=== PATIENT | male | born 1995 | race Caucasian/White ===

== ENCOUNTER 2019-01-17 08:12 | Emergency (ER) | payer SELFPAY ==
[~2019-01-17] VITALS: Ht 198.1 cm; Wt 131.5 kg
[2019-01-17 08:18] VITALS: BP 143/64
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
== END 2019-01-17 09:54 | disposition home or self-care (01) ==
LOC: ER 08:12
DX: M25.561 Pain in right knee (principal); G89.11 Acute pain due to trauma; V29.88XA Motorcycle rider (driver) (passenger) injured in other specified transport accidents, initial encounter; Y92.488 Other paved roadways as the place of occurrence of the external cause; Y93.89 Activity, other specified; Y99.8 Other external cause status
CPT/HCPCS: 73562; 99284

== ENCOUNTER 2019-01-26 14:11 | Emergency (ER) | payer SELFPAY ==
[~2019-01-26] VITALS: Ht 195.6 cm; Wt 131.5 kg
[2019-01-26] MEDS ORDERED: NAPROXEN 500 MG TABLET PO STA (14:23)
[2019-01-26 14:45] VITALS: BP 149/76
[2019-01-26] MEDS ORDERED: HYDROcodone/APAP 5/325MG 1 TAB TABLET PO ONE (14:45)
--- NOTE | 2019-01-26 14:45 | RAD ---
SHOULDER 2+V RIGHT History: Fall, right clavicular pain Comparison: None. Findings: 3 views of the right clavicle are submitted. There is displaced overriding fracture of the midshaft of the right clavicle, proximal fragment displaced superiorly by greater than 1 shaft width. Impression: 1. There is overriding, displaced fracture of the midshaft of the right clavicle. Electronically signed by: Jose Chakraborty MD (01/26/2019 2:42 PM) [facility]
[2019-01-26] MEDS ORDERED: ONDANSETRON ODT 4 MG TAB.RAPDIS. PO ONE (15:00)
[2019-01-26] MEDS ORDERED: HYDR-3164 PO (15:42)
[2019-01-26] MEDS ORDERED: ONDA4TAB12 PO (15:42)
--- NOTE | 2019-01-26 15:42 | PHYS DOC ---
Past Medical History Past Medical History: No Pertinent History (AMADO JACOBO APRN) Past Surgical History: No Surgical History (AMADO JACOBO APRN) Alcohol Use: None Drug Use: None (AMADO JACOBO APRN) Adult General Chief Complaint Chief Complaint: SHOULDER INJURY HPI HPI Patient is a 23 year old male witha medical history who presents to the ED today complaining of 9 out of 10 right shoulder pain specifically around the right clavicle that began after falling off a ladder. 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 Patient denies any loss of consciousness. Denies any neck pain. Denies hitting his head on the ground. He describes his pain as sharp and constant worse on touching the clavicle. (AMADO JACOBO APRN) Review of Systems Review of Systems Constitutional: Denies fever or chills [] Eyes: Denies change in visual acuity, redness, or eye pain [] HENT: Denies nasal congestion or sore throat [] Respiratory: Denies cough or shortness of breath [] Cardiovascular: No additional information not addressed in HPI [] GI: Denies abdominal pain, nausea, vomiting, bloody stools or diarrhea [] : Denies dysuria or hematuria [] Musculoskeletal: Reports right shoulder pain/right clavicle pain Integument: Denies rash or skin lesions [] Neurologic: Denies headache, focal weakness or sensory changes [] All other systems were reviewed and found to be within normal limits, except as documented in this note. (AMADO JACOBO APRN) Current Medications Current Medications Current Medications Medications (Trade) Dose Ordered Sig/Souleymane Start Time Stop Time Status Last Admin Dose Admin Acetaminophen/ Hydrocodone Bitart (Lortab 5/325) 2 tab 1X ONCE 01/26/19 14:45 01/26/19 14:46 DC 01/26/19 14:31 2 TAB Naproxen (Naprosyn) 500 mg 1X STAT 01/26/19 14:23 01/26/19 14:26 DC 01/26/19 14:31 500 MG Ondansetron HCl (Zofran Odt) 4 mg 1X ONCE 01/26/19 15:00 01/26/19 15:01 DC 01/26/19 15:00 4 MG (JOHN CALDERA MD) Allergies Allergies Allergies Coded Allergies Type Severity Reaction Last Updated Verified No Known Drug Allergies 01/17/19 No (JOHN CALDERA MD) Physical Exam Physical Exam Constitutional: Well developed, well nourished, no acute distress, non-toxic appearance. [] HENT: Normocephalic, atraumatic, bilateral external ears normal, oropharynx moist, no oral exudates, nose normal. [] Eyes: PERRLA, EOMI, conjunctiva normal, no discharge. [] Neck: Normal range of motion, no tenderness, supple, no stridor. [] Cardiovascular:Heart rate regular rhythm, no murmur [] Lungs & Thorax: Bilateral breath sounds clear to auscultation [] Abdomen: Bowel sounds normal, soft, no tenderness, no masses, no pulsatile masses. [] Skin: Warm, dry, no erythema, no rash. [] Back: No tenderness, no CVA tenderness. [] Extremities: Obvious deformity noted right mid clavicle with tenderness to the region. Slightly Limited range of motion to the right shoulder due to pain on the clavicle. Full range of motion to the right fingers. Adequate radial, medial, ulnar sensation to the right upper extremity. +2 right radial pulse. Cap refill less than 2 seconds the right fingers. Neurologic: Alert and oriented X 3, normal motor function, normal sensory function, no focal deficits noted. [] Psychologic: Affect normal, judgement normal, mood normal. [] (AMADO JACOBO APRN) Current Patient Data Vital Signs Vital Signs Date Time Temp Pulse Resp B/P (MAP) Pulse Ox O2 Delivery O2 Flow Rate FiO2 01/26/19 14:45 76 16 149/76 (100) 97 Room Air 01/26/19 14:25 98.5 98.5 (JOHN CALDERA MD) EKG EKG [] (AMADO JACOBO APRN) Radiology/Procedures Radiology/Procedures []PROCEDURE: SHOULDER 2+V RIGHT SHOULDER 2+V RIGHT History: Fall, right clavicular pain Comparison: None. Findings: 3 views of the right clavicle are submitted. There is displaced overriding fracture of the midshaft of the right clavicle, proximal fragment displaced superiorly by greater than 1 shaft width. Impression: 1. There is overriding, displaced fracture of the midshaft of the right clavicle. Electronically signed by: Aimee Drummond MD (01/26/2019 2:42 PM) [facility] DICTATED and SIGNED BY: AIMEE DRUMMOND MD DATE: 01/26/19 1442 (AMADO JACOBO APRN) Course & Med Decision Making Course & Med Decision Making Pertinent Labs and Imaging studies reviewed. (See chart for details) This is a 23-year-old male patient who presents to the ED today with right shoulder pain specifically around the clavicle that began after he fell off a ladder. Xray of the right shoulder interpreted by radiologist noted for overriding, displaced fracture of the midshaft of the right clavicle. He requested patient we should do a chest x-ray to make sure there is no lung contusion as well as CT of the cervical spine. Patient refused. 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 Provided instructions to follow-up with orthopedic doctor. (AMADO JACOBO APRN) Dragon Disclaimer Dragon Disclaimer This electronic medical record was generated, in whole or in part, using a voice recognition dictation system. (AMADO JACOBO APRN) Departure Departure Impression: Primary Impression: Fall from ladder Additional Impression: Right clavicle fracture Disposition: 01 HOME, SELF-CARE Condition: STABLE Referrals: NO PCP (PCP) BARRY POOLE MD Please call them on Monday and set up a follow-up appointment Patient Instructions: Clavicle Fracture Additional Instructions: You have right clavicle fracture, contact the provided orthopedic doctor tomorrow morning and set up a follow-up appointment. Try to ice and elevate the extremity. Scripts Hydrocodone/Apap 5-325 (NORCO 5-325 TABLET) 1 Each Tablet 1-2 TAB PO Q4-6HRS, #25 TAB Prov: AMADO JACOBO APRN 01/26/19 Ondansetron (ONDANSETRON ODT) 4 Mg Tab.rapdis 1 TAB PO PRN Q6-8HRS, #16 TAB Prov: AMADO JACOBO APRN 01/26/19 Problem Qualifiers Primary Impression: Fall from ladder Encounter type: initial encounter Qualified Codes: W11.XXXA - Fall on and from ladder, initial encounter Additional Impression: Right clavicle fracture Encounter type: initial encounter Clavicle location: lateral end Fracture type: closed Fracture alignment: displaced Qualified Codes: S42.031A - Displaced fracture of lateral end of right clavicle, initial encounter for closed fracture AMADO JACOBO APRN Jan 26, 2019 15:42 JOHN CALDERA MD Jan 27, 2019 06:13
== END 2019-01-26 15:50 | disposition home or self-care (01) ==
LOC: ER 14:11
DX: S42.031A Displaced fracture of lateral end of right clavicle, initial encounter for closed fracture (principal); W11.XXXA Fall on and from ladder, initial encounter; Y93.89 Activity, other specified; Y92.89 Other specified places as the place of occurrence of the external cause; Y99.8 Other external cause status
CPT/HCPCS: 73030; 99284; Q0162

== ENCOUNTER 2019-01-29 20:55 | Emergency (ER) | payer SELFPAY ==
[~2019-01-29 20:55] MED LIST: HYDR-3164 PO; ONDA4TAB12 PO
== END 2019-01-29 21:30 | disposition left against medical advice (07) ==
LOC: ER 20:55
DX: S49.91XA Unspecified injury of right shoulder and upper arm, initial encounter (principal); Z53.21 Procedure and treatment not carried out due to patient leaving prior to being seen by health care provider; X58.XXXA Exposure to other specified factors, initial encounter; Y93.89 Activity, other specified; Y92.89 Other specified places as the place of occurrence of the external cause; Y99.8 Other external cause status

== ENCOUNTER 2021-08-01 00:39 | Emergency (ER) | payer SELFPAY ==
[~2021-08-01] VITALS: Ht 188 cm; Wt 100.0 kg
--- NOTE | 2021-08-01 01:40 | PHYS DOC ---
Past Medical History Past Medical History: No Pertinent History Past Surgical History: No Surgical History Smoking Status: Never Smoker Alcohol Use: None Drug Use: None General Adult EDM: Chief Complaint: Toothache HPI: HPI: Patient is a 26 year old male who presented to ER for evaluation of right lower dental pain. Patient said he was doing some steak tonight and part of the tooth broken off, having pain since. Review of Systems: Review of Systems: Constitutional: Denies fever or chills. [] Eyes: Denies change in visual acuity. [] HENT: Denies nasal congestion or sore throat. Positive for dental pain Respiratory: Denies cough or shortness of breath. [] Cardiovascular: Denies chest pain or edema. [] GI: Denies abdominal pain, nausea, vomiting, bloody stools or diarrhea. [] : Denies dysuria. [] Musculoskeletal: Denies back pain or joint pain. [] Integument: Denies rash. [] Neurologic: Denies headache, focal weakness or sensory changes. [] Endocrine: Denies polyuria or polydipsia. [] Lymphatic: Denies swollen glands. [] Psychiatric: Denies depression or anxiety. [] Heart Score: C/O Chest Pain: N/A Risk Factors: Risk Factors: DM, Current or recent (<one month) smoker, HTN, HLP, family history of CAD, obesity. Risk Scores: Score 0 - 3: 2.5% MACE over next 6 weeks - Discharge Home Score 4 - 6: 20.3% MACE over next 6 weeks - Admit for Clinical Observation Score 7 - 10: 72.7% MACE over next 6 weeks - Early Invasive Strategies Allergies: Allergies: Allergies Coded Allergies Type Severity Reaction Last Updated Verified No Known Drug Allergies 01/17/19 No Physical Exam: PE: Constitutional: Well developed, well nourished, no acute distress, non-toxic appearance. [] HENT: Normocephalic, atraumatic, bilateral external ears normal, oropharynx moist, no oral exudates, nose normal. Right lower first molar with cavity, tender to palpation Eyes: PERRLA, EOMI, conjunctiva normal, no discharge. [] Neck: Normal range of motion, no tenderness, supple, no stridor. [] Neurologic: Alert and oriented X 3, normal motor function, normal sensory function, no focal deficits noted. [] Psychologic: Affect normal, judgement normal, mood normal. [] Current Patient Data: Vital Signs: Vital Signs Date Time Temp Pulse Resp B/P (MAP) Pulse Ox O2 Delivery O2 Flow Rate FiO2 08/01/21 00:55 97.9 96 18 124/78 (93) 97 Room Air 97.9 EKG: EKG: [] Radiology/Procedures: Radiology/Procedures: [] Course & Med Decision Making: Course & Med Decision Making Pertinent Labs and Imaging studies reviewed. (See chart for details) [] Dragon Disclaimer: Dragon Disclaimer: This electronic medical record was generated, in whole or in part, using a voice recognition dictation system. Departure Departure Impression: Primary Impression: Dental decay Disposition: HOME / SELF CARE / HOMELESS Condition: STABLE Referrals: NO PCP (PCP) Patient Instructions: Dental Abscess Additional Instructions: [facility] [address] [place] [address] [facility] [address] [place] [address] [facility] [address] [facility] [place] [address] [facility] [address] [place] [address] [facility] [address] [place] [address] [facility] [address] [place] [address] [facility] [address] [place] [address] [facility] [address] [place] [address] [facility] [address] [place] [address] [facility] [address] [place] [address] Scripts Tramadol Hcl (TRAMADOL HCL) 50 Mg Tablet 50 MG PO Q6HRS PRN for PAIN, #15 TAB Prov: MILES FLORES DO 08/01/21 Amoxicillin (AMOXICILLIN) 500 Mg Capsule 1 CAP PO TID for 10 Days, #30 CAP Prov: MILES FLORES DO 08/01/21 MILES FLORES DO Aug 01, 2021 01:40
[2021-08-01] MEDS ORDERED: AMOX500C PO (01:44)
[2021-08-01] MEDS ORDERED: TRAM50TA PO (01:44)
[2021-08-01] MEDS ORDERED: KETOROLAC 60 MG/2 ML VIAL. IM ONE (01:45)
[2021-08-01] MEDS ORDERED: AMOXICILLIN 250 MG CAPSULE. PO ONE (01:45)
[2021-08-01 02:31] VITALS: BP 145/97
== END 2021-08-01 02:31 | disposition home or self-care (01) ==
LOC: ER 00:39
DX: K02.9 Dental caries, unspecified (principal)
CPT/HCPCS: 96372; 99283; J1885